=== PATIENT | male | born 1945 | race Caucasian/White ===

== ENCOUNTER → 2019-03-20 15:00 | Outpatient (BNVA) | payer MEDICARE, OTHER, SELFPAY | PROVIDERS: PCP Nurse Practitioner Family; Referring Provider Nurse Practitioner Family; Visit Provider Urology | DX: N28.1 Cyst of kidney, acquired (principal) | CPT/HCPCS: 99203 ==

== ENCOUNTER → 2019-09-16 09:52 | Outpatient (BNVA) | payer MEDICARE, OTHER, SELFPAY | PROVIDERS: PCP Nurse Practitioner Family; Referring Provider Nurse Practitioner Family; Visit Provider Urology | DX: N28.1 Cyst of kidney, acquired (principal); Z12.5 Encounter for screening for malignant neoplasm of prostate | CPT/HCPCS: 99213 ==

== ENCOUNTER → 2020-04-13 10:42 | Outpatient (BNVA) | payer MEDICARE, SELFPAY | PROVIDERS: PCP Nurse Practitioner Family; Referring Provider Nurse Practitioner Family; Visit Provider Nurse Practitioner Gerontology | DX: N28.1 Cyst of kidney, acquired (principal) | CPT/HCPCS: 99213 ==

== ENCOUNTER → 2020-10-13 08:03 | Outpatient (BNVA) | payer MEDICARE, SELFPAY | PROVIDERS: PCP Nurse Practitioner Family; Referring Provider Nurse Practitioner Family; Visit Provider Nurse Practitioner Gerontology | DX: N28.1 Cyst of kidney, acquired (principal); N13.30 Unspecified hydronephrosis | CPT/HCPCS: 99214 ==

== ENCOUNTER → 2021-04-07 14:14 | Outpatient (BNVA) | payer MEDICARE, SELFPAY | PROVIDERS: PCP Nurse Practitioner Family; Referring Provider Nurse Practitioner Family; Visit Provider Nurse Practitioner Gerontology | DX: N28.1 Cyst of kidney, acquired (principal); N13.30 Unspecified hydronephrosis; Z71.2 Person consulting for explanation of examination or test findings | CPT/HCPCS: 99214 ==

== ENCOUNTER → 2021-10-04 15:17 | Outpatient (BNVA) | payer MEDICARE, SELFPAY | PROVIDERS: PCP Nurse Practitioner Family; Referring Provider Nurse Practitioner Family; Visit Provider Nurse Practitioner Gerontology | DX: N28.1 Cyst of kidney, acquired (principal) | CPT/HCPCS: 99214 ==

== ENCOUNTER → 2022-10-04 13:15 | Outpatient (BNVA) | payer MEDICARE, SELFPAY | PROVIDERS: Visit Provider Nurse Practitioner Gerontology | DX: N28.1 Cyst of kidney, acquired (principal); N13.30 Unspecified hydronephrosis | CPT/HCPCS: 99213 ==

== ENCOUNTER → 2023-10-03 13:07 | Outpatient (BNVA) | payer MEDICARE, SELFPAY | PROVIDERS: PCP Nurse Practitioner Family; Referring Provider Nurse Practitioner Family; Visit Provider Nurse Practitioner Gerontology | DX: N28.1 Cyst of kidney, acquired (principal); N40.1 Benign prostatic hyperplasia with lower urinary tract symptoms; N13.8 Other obstructive and reflux uropathy; N13.30 Unspecified hydronephrosis | CPT/HCPCS: 99213 ==

== ENCOUNTER → 2024-10-01 13:06 | Outpatient (BNVA) | payer MEDICARE, SELFPAY | PROVIDERS: PCP Nurse Practitioner Family; Visit Provider Nurse Practitioner Gerontology | DX: N28.1 Cyst of kidney, acquired (principal); N13.30 Unspecified hydronephrosis; N40.1 Benign prostatic hyperplasia with lower urinary tract symptoms | CPT/HCPCS: 99214 ==